=== PATIENT | male | born 1945 | race Caucasian/White ===

== ENCOUNTER 2021-03-02 11:23 | Inpatient (IN) ==
--- NOTE | 2021-03-02 12:19 | XRay Report ---
SINGLE VIEW CHEST CLINICAL HISTORY: Dyspnea. Hypoxia. FINDINGS: 2 AP, portable, upright chest radiographs are compared to study dated 09/15/2019. The examin ation is degraded by portable technique and patient rotation. The heart is enlarged. Patchy airspace consolidation is seen at both lung bases. No large pleural effusion or pneumothorax is identified. Th e skeletal structures are osteopenic. The bony thorax is grossly intact. IMPRESSION: Patchy airspace consolidation is seen at both lung bases. Correlate clinically for eviden ce of pneumonia. Radiographic follow-up to resolution is recommended. ACT 112: Negative or not required by law. Electronically signed by: Brayan Hernandez M.D. 03/02/2021 12:18 PM
--- NOTE | 2021-03-02 12:25 | Emergency Department Note ---
Impression & Plan Hypoxia, GRANDE (dyspnea on exertion), Hypernatremia, COPD (chronic obstructive pulmonary disease), Cough ED Provider Note Provider: Bharat Guerrero MD DATE OF SERVICE: 03/02/2021 CHIEF COMPLAINT: Dyspnea on exertion HISTORY OF PRESENT ILLNESS: Patient is a 75-year-old gentleman past medical hi story including CKD, COPD, type 2 diabetes, dementia, and hypertension presenting here today via ambulance from the [facility] in [place]. Patient was there for a well visit and noted to be hypoxic in the 70s. Patient is not on home oxygen. Patient denies any pain, nausea, vomiting, or abdominal pain. Patient does report that he has a bit of a chronic cough with some slight phlegm production. Denies fever or chills. Reports bit of nose congestion. Patient states he is vaccinated for flu and 2 shots of Covid. Patient states is not too short of breath at rest but when he walks he gets more short of breath. Patient states he did drop his pillbox recently and the pills got mixed up and he is unsure if he has been taking the right things. REVIEW OF SYSTEMS: A total of 10 review of systems was obtained and negative except as stated above in the HPI. PAST MEDICAL HISTORY: As noted above MEDICATIONS: Patient denies sick contact to his knowledge. SOCIAL HISTORY: Lives at home with , former smoker PHYSICAL EXAM: GENERAL: alert and oriented in no acute distress on stretcher Head: normocephalic and atraumatic EYES: No injection, discharge or icterus. NECK: Trachea midline. Supple. ENT: Mucous membranes pink and moist. LUNGS: Airway patent. No retractions. Breath sounds with some transmitted upper airway sounds and diminished bases. HEART: Regular rate and rhythm. No chest wall tenderness ABDOMEN: Soft and non-tender, without guarding or rebound. SKIN: Acyanotic, warm, dry, without rashes EXTREMITIES: Patient with 2+ bilateral lower extremity swelling. No significant leg tenderness. NEUROLOGICAL: No focal deficits. No aphasia. No facial droop or slurred speech. EK bpm normal sinus rhythm. No PVC or PAC. No acute ST segment elevation or depression. QTC 407. Some baseline artifact. CONTINUOUS CARDIAC MONITORING: was ordered and showed a heart rate of 70s to 80s bpm in normal sinus rhythm Patient's laboratory studies and imaging reviewed. Differential includes Reactive airway disease, pneumonia, pneumothorax, COPD, CHF, infections, cardiac ischemia, pulmonary embolism, musculoskeletal, gastrointestinal, as well as other pathologies. IMPRESSION/MEDICAL DECISION MAKING: Patient presents with new oxygen requirement. Here SpO2 in the mid 80s on room air. History of COPD. Some leg swelling noted. Question if medications have been mixed up. Is vaccinated for Covid and Covid test is negative here today. Chest x-ray per reviewing radiology report question some bibasilar opacities. No significant leukocytosis and minimal anemia. Some hyponatremia borderline is noted with chronic CKD. No lactate elevation. Procalcitonin not significantly elevated. No transaminitis noted. Patient does desaturate again with ambul ation of the bathroom here. Not horribly wheezy but given a DuoNeb to see if this may help. Will cover with antibiotics at this time given the x-ray findings and reported phlegmy cough and the hypoxia. Ceftriaxone and doxycycline given. Given an additional dose small amount of Lasix as he does h ave some leg swelling although proBNP is not severely elevated. Updated the patient and his daughter at bedside. Discussed further care here at the hospital. Lower suspicion at this time the patient suffering from acute PE. Hospitalist was alerted. DIAGNOSIS: Hypoxia, cough, pneumonia, COPD, leg swelling DISPOSITION: Hospitalist will evaluate Patient was agreeable with this plan. Past Med/Surg History Medical History (Updated 03/02/21 @ 14:27 by Vira Coffey PA-C) Lewy body dementia Social History Smoking Status: Never smoker Preferred Language: Chinese Feels Safe at Home: Yes Allergies Allergies Allergy/AdvReac Type Severity Reaction Status Date / Time No Known Allergies Allergy Unverified 03/02/21 13:15 Home Meds Home Medications Medication Instructions Recorded Confirmed albuterol sulfate 90 mcg/actuation 90 mcg INHALATION DIRECTED 09/15/19 03/02/21 aerosol inhaler allopurinol 100 mg tablet 100 mg PO QAM 09/15/19 03/02/21 aspirin 81 mg tablet,delayed 81 mg PO QAM 09/15/19 03/02/21 release (Aspirin Low Dose) atorvastatin 40 mg tablet 40 mg PO HS 09/15/19 03/02/21 blood sugar diagnostic (OneTouch 09/15/19 03/02/21 Ultra Blue Test Strip) carvedilol 25 mg tablet 25 mg PO BID 09/15/19 03/02/21 enalapril maleate 20 mg tablet 20 mg PO QAM 09/15/19 03/02/21 finasteride 5 mg tablet 5 mg PO QAM 09/15/19 03/02/21 levothyroxine 100 mcg tablet 100 mcg PO DAILYBB 09/15/19 03/02/21 omeprazole 20 mg capsule,delayed 20 mg PO QAM 09/15/19 03/02/21 release salmeterol 50 mcg/dose blister 50 mcg INHALATION BID 09/15/19 03/02/21 powder for inhalation (Serevent Diskus) tamsulosin 0.4 mg capsule 0.4 mg PO QAM 09/15/19 03/02/21 amlodipine 10 mg tablet 10 mg PO QAM 03/02/21 03/02/21 donepezil 10 mg tablet 10 mg PO QAM 03/02/21 03/02/21 furosemide 20 mg tablet 20 mg PO QAM 03/02/21 03/02/21 sertraline 100 mg tablet 100 mg PO HS 03/02/21 03/02/21 Results & Data (ED) Vital Signs Vital Signs - 24 hr 03/02/21 11:40 03/02/21 13:17 Temperature 36.7 C Temperature Source Oral Pulse Rate 70 Pulse Rate [Apical] 74 Pulse Rhythm Regular Pulse Strength Normal Respiratory Rate 22 22 Respiratory Effort / Characteristics Non-Labored Spontaneous Non-Labored Respiratory Depth Normal Normal Respiratory Pattern Regular Blood Pressure 176/81 H Blood Pressure [Left Arm] 152/101 H Blood Pressure Mean 112 Blood Pressure Mean [Left Arm] 118 Pulse Oximetry 95 96 Oxygen Delivery Method Nasal Cannula Nasal Cannula Oxygen Flow Rate 2 3 Sepsis Recent Fever Within 48 Hours No Sepsis New/Unexplained Change in Mental Status No Sepsis Action Taken by Nursing No Action Required Laboratory Data Result diagrams: 03/02/21 11:41 03/02/21 11:41 Lab Results 03/02/21 03/02/21 03/02/21 Range/Units 11:41 11:41 11:41 WBC 9.41 (4.8-10.8) K/uL RBC 3.70 L (4.7-6.1) M/uL Hgb 10.8 L (14.0-18.0) g/dL Hct 37.6 L (42-52) % MCV 101.6 H (80-100) fL MCH 29.2 (25-34) pg MCHC 28.7 L (32-36) g/dL RDW Std Deviation 57.2 H (36.4-46.3) fL RDW Coeff of Dipesh 15.4 H (11.5-14.5) % Plt Count 147 (130-400) K/uL MPV 11.3 H (7.4-10.4) fL Immature Gran % (Auto) 0.2 % Neut % (Auto) 79.5 % Lymph % (Auto) 9.2 % [place] % (Auto) 9.2 % Eos % (Auto) 1.7 % Baso % (Auto) 0.2 % Neut # (Auto) 7.47 H (1.4-6.5) K/uL Lymph # (Auto) 0.87 L (1.2-3.4) K/uL [place] # (Auto) 0.87 H (0.11-0.59) K/uL Eos # (Auto) 0.16 (0-0.5) K/uL Baso # (Auto) 0.02 (0-0.2) K/uL Immature Gran # (Auto) 0.02 (0.00-0.02) K/uL PT (9.0-12.0) Seconds INR (0.9-1.1) VBG pH (7.36-7.41) VBG pCO2 (38-50) mmHg VBG pO2 mmHg VBG HCO3 mmol/L VBG O2 Saturation % VBG Base Excess mEq/L Barometric Pressure mm/Hg Sodium 146 H (136-145) mmol/L Potassium 4.4 (3.5-5.1) mmol/L Chloride 114 H (98-107) mmol/L Carbon Dioxide 31 (21-32) mmol/L Anion Gap 1.0 L (3-11) BUN 28 H (7-18) mg/dl Creatinine 1.67 H (0.6-1.4) mg/dl Est Cr Clr Drug Dosing 44.9 ml/min Est GFR ( Amer) 45.1 ml/min Est GFR (Non-Af Amer) 38.9 ml/min BUN/Creatinine Ratio 16.5 (10-20) Glucose 111 H (70-99) mg/dl Lactate (0.4-2.0) mmol/L Calcium 9.1 (8.5-10.1) mg/dl Total Bilirubin 0.3 (0.2-1) mg/dl AST 15 (15-37) U/L ALT 49 (12-78) Alkaline Phosphatase 76 (45-117) U/L Troponin I < 0.015 (0-0.045) ng/ml NT-Pro-B Natriuret Pep 597 (0-1800) pg/ml Total Protein 7.0 (6.4-8.2) gm/dl Albumin 3.5 (3.4-5.0) gm/dl Globulin 3.5 (2.5-4.0) gm/dl Albumin/Globulin Ratio 1.0 (0.9-2) Procalcitonin < 0.05 (0-0.5) ng/ml SARS-CoV-2, RNA, NAAT (NEGATIVE) 03/02/21 03/02/21 03/02/21 Range/Units 11:41 12:04 12:33 WBC (4.8-10.8) K/uL RBC (4.7-6.1) M/uL Hgb (14.0-18.0) g/dL Hct (42-52) % MCV (80-100) fL MCH (25-34) pg MCHC (32-36) g/dL RDW Std Deviation (36.4-46.3) fL RDW Coeff of Dipesh (11.5-14.5) % Plt Count (130-400) K/uL MPV (7.4-10.4) fL Immature Gran % (Auto) % Neut % (Auto) % Lymph % (Auto) % [place] % (Auto) % Eos % (Auto) % Baso % (Auto) % Neut # (Auto) (1.4-6.5) K/uL Lymph # (Auto) (1.2-3.4) K/uL [place] # (Auto) (0.11-0.59) K/uL Eos # (Auto) (0-0.5) K/uL Baso # (Auto) (0-0.2) K/uL Immature Gran # (Auto) (0.00-0.02) K/uL PT 10.3 (9.0-12.0) Seconds INR 1.0 (0.9-1.1) VBG pH (7.36-7.41) VBG pCO2 (38-50) mmHg VBG pO2 mmHg VBG HCO3 mmol/L VBG O2 Saturation % VBG Base Excess mEq/L Barometric Pressure mm/Hg Sodium (136-145) mmol/L Potassium (3.5-5.1) mmol/L Chloride (98-107) mmol/L Carbon Dioxide (21-32) mmol/L Anion Gap (3-11) BUN (7-18) mg/dl Creatinine (0.6-1.4) mg/dl Est Cr Clr Drug Dosing ml/min Est GFR ( Amer) ml/min Est GFR (Non-Af Amer) ml/min BUN/Creatinine Ratio (10-20) Glucose (70-99) mg/dl Lactate 1.7 (0.4-2.0) mmol/L Calcium (8.5-10.1) mg/dl Total Bilirubin (0.2-1) mg/dl AST (15-37) U/L ALT (12-78) Alkaline Phosphatase (45-117) U/L Troponin I (0-0.045) ng/ml NT-Pro-B Natriuret Pep (0-1800) pg/ml Total Protein (6.4-8.2) gm/dl Albumin (3.4-5.0) gm/dl Globulin (2.5-4.0) gm/dl Albumin/Globulin Ratio (0.9-2) Procalcitonin (0-0.5) ng/ml SARS-CoV-2, RNA, NAAT NEGATIVE (NEGATIVE) 03/02/21 Range/Units 13:50 WBC (4.8-10.8) K/uL RBC (4.7-6.1) M/uL Hgb (14.0-18.0) g/dL Hct (42-52) % MCV (80-100) fL MCH (25-34) pg MCHC (32-36) g/dL RDW Std Deviation (36.4-46.3) fL RDW Coeff of Dipesh (11.5-14.5) % Plt Count (130-400) K/uL MPV (7.4-10.4) fL Immature Gran % (Auto) % Neut % (Auto) % Lymph % (Auto) % [place] % (Auto) % Eos % (Auto) % Baso % (Auto) % Neut # (Auto) (1.4-6.5) K/uL Lymph # (Auto) (1.2-3.4) K/uL [place] # (Auto) (0.11-0.59) K/uL Eos # (Auto) (0-0.5) K/uL Baso # (Auto) (0-0.2) K/uL Immature Gran # (Auto) (0.00-0.02) K/uL PT (9.0-12.0) Seconds INR (0.9-1.1) VBG pH 7.31 L (7.36-7.41) VBG pCO2 63 H (38-50) mmHg VBG pO2 28 mmHg VBG HCO3 31 mmol/L VBG O2 Saturation < 60.0 % VBG Base Excess 3.7 mEq/L Barometric Pressure 728.1 mm/Hg Sodium (136-145) mmol/L Potassium (3.5-5.1) mmol/L Chloride (98-107) mmol/L Carbon Dioxide (21-32) mmol/L Anion Gap (3-11) BUN (7-18) mg/dl Creatinine (0.6-1.4) mg/dl Est Cr Clr Drug Dosing ml/min Est GFR ( Amer) ml/min Est GFR (Non-Af Amer) ml/min BUN/Creatinine Ratio (10-20) Glucose (70-99) mg/dl Lactate (0.4-2.0) mmol/L Calcium (8.5-10.1) mg/dl Total Bilirubin (0.2-1) mg/dl AST (15-37) U/L ALT (12-78) Alkaline Phosphatase (45-117) U/L Troponin I (0-0.045) ng/ml NT-Pro-B Natriuret Pep (0-1800) pg/ml Total Protein (6.4-8.2) gm/dl Albumin (3.4-5.0) gm/dl Globulin (2.5-4.0) gm/dl Albumin/Globulin Ratio (0.9-2) Procalcitonin (0-0.5) ng/ml SARS-CoV-2, RNA, NAAT (NEGATIVE) Administered Medications Discontinued Medications Albuterol (Albut/Ipratrop 3mg/0.5mg Neb 3 Ml Vial) 3 ml NEB NOW STA; Protocol Stop: 03/02/21 13:09 Last Admin: 03/02/21 13:25 Dose: 3 ml Documented by: [id number] Doxycycline Hyclate (Doxycycline Hyclate 100 Mg Cap) 100 mg PO NOW STA Stop: 03/02/21 13:11 Last Admin: 03/02/21 13:25 Dose: 100 mg Documented by: [id number] Furosemide (Furosemide 40 Mg/4 Ml Vial) 40 mg IV ONE ONE Stop: 03/02/21 13:09 Last Admin: 03/02/21 13:25 Dose: 40 mg Documented by: [id number] Ceftriaxone Sodium (Rocephin) 2,000 mg in 70 mls @ 140 mls/hr IV NOW STA Stop: 03/02/21 13:38 Last Infusion: 03/02/21 13:55 Dose: 0 mls/hr Documented by: [id number] Admin: 03/02/21 13:25 Dose: 140 mls/hr Documented by: [id number] Imaging Data Radiologist's Impression: Chest X-Ray 03/02/21 11:56 SINGLE VIEW CHEST CLINICAL HISTORY: Dyspnea. Hypoxia. FINDINGS: 2 AP, portable, upright chest radiographs are compared to study dated 09/15/2019. The examination is degraded by portable technique and patient rotation. The heart is enlarged. Patchy airspace consolidation is seen at both lung bases. No large pleural effusion or pneumothorax is identified. The skeletal structures are osteopenic. The bony thorax is grossly intact. IMPRESSION: Patchy airspace consolidation is seen at both lung bases. Correlate clinically for evidence of pneumonia. Radiographic follow-up to resolution is recommended. ACT 112: Negative or not required by law. Electronically signed by: Brayan Hernandez M.D. 03/02/2021 12:18 PM Discharge Plan Visit Data Chief Complaint: Shortness of Breath/Dyspnea Stated Complaint: SOB ED Provider: Bharat Guerrero Discharge Problem: Hypoxia, GRANDE (dyspnea on exertion), Hypernatremia, COPD (chronic obstructive pulmonary disease), Cough Patient Disposition: Being Evaluated by Hospitalist Forms Stand Alone Forms: Curiously Prescriptions Prescriptions: No Action atorvastatin 40 mg tablet 40 mg PO HS RF: 0 carvedilol 25 mg tablet 25 mg PO BID RF: 0 enalapril maleate 20 mg tablet 20 mg PO QAM RF: 0 allopurinol 100 mg tablet 100 mg PO QAM RF: 0 levothyroxine 100 mcg tablet 100 mcg PO DAILYBB RF: 0 tamsulosin 0.4 mg capsule 0.4 mg PO QAM RF: 0 Serevent Diskus 50 mcg/dose blister with device 50 mcg INHALATION BID RF: 0 omeprazole 20 mg capsule,delayed release(DR/EC) 20 mg PO QAM RF: 0 albuterol sulfate 90 mcg/actuation HFA aerosol inhaler 90 mcg INHALATION DIRECTED RF: 0 finasteride 5 mg tablet 5 mg PO QAM RF: 0 (DME) OneTouch Ultra Blue Test Strip Strip MISCELLANEOUS RF: 0 aspirin [Aspirin Low Dose] 81 mg Tablet,Delayed Release (Dr/Ec) 81 mg PO QAM RF: 0 donepezil 10 mg tablet 10 mg PO QAM RF: 0 sertraline 100 mg tablet 100 mg PO HS RF: 0 amlodipine 10 mg tablet 10 mg PO QAM RF: 0 furosemide 20 mg tablet 20 mg PO QAM RF: 0 Referrals Referrals: Carina Merrill DO [Primary Care Provider] -
[2021-03-02 12:32] LABS: Prothrombin Time 10.3 Seconds (9.0-12.0)
[2021-03-02 12:40] LABS: Alanine Aminotransferase 49 (12-78); Albumin Level 3.5 gm/dl (3.4-5.0); Aspartate Aminotransferase 15 U/L (15-37); BUN Creatinine Ratio 16.5 (10-20); Blood Urea Nitrogen 28 mg/dl (7-18); Calcium 9.1 mg/dl (8.5-10.1); Carbon Dioxide 31 mmol/L (21-32); Chloride 114 mmol/L (98-107); Creatinine Clr Calc Pharmacy 44.9 ml/min; Est GFR (African American) 45.1 ml/min; Est GFR (Non-African American) 38.9 ml/min; Glucose 111 mg/dl (70-99); Potassium 4.4 mmol/L (3.5-5.1); Sodium 146 mmol/L (136-145)
[2021-03-02 12:44] LABS: Hematocrit (blood only) 37.6 % (42-52); Hemoglobin 10.8 g/dL (14.0-18.0); Mean Corpuscular Hemoglobin 29.2 pg (25-34); Mean Corpuscular Hgb Conc 28.7 g/dL (32-36); Mean Corpuscular Volume 101.6 fL (80-100); Mean Platelet Volume 11.3 fL (7.4-10.4); Platelet Count 147 K/uL (130-400); RDW Coefficient of Variation 15.4 % (11.5-14.5); RDW Standard Deviation 57.2 fL (36.4-46.3); White Blood Count 9.41 K/uL (4.8-10.8)
[2021-03-02 12:45] LABS: Alkaline Phosphatase 76 U/L (45-117); Bilirubin,Total 0.3 mg/dl (0.2-1); Globulin 3.5 gm/dl (2.5-4.0); NT Pro B Type Natriuretic Pept 597 pg/ml (0-1800); Troponin I < 0.015 ng/ml (0-0.045)
[2021-03-02] MEDS ORDERED: ALBUT/IPRATROP 3MG/0.5MG NEB 3 ML VIAL NEB STA (13:08)
[2021-03-02] MEDS ORDERED: FUROSEMIDE 40 MG/4 ML VIAL IV ONE (13:08)
[2021-03-02] MEDS ORDERED: cefTRIAXone SODIUM 2,000 MG/70 ML BAG IV STA (13:09)
[2021-03-02] MEDS ORDERED: DOXYCYCLINE HYCLATE 100 MG CAP PO STA (13:10)
[2021-03-02 13:18] LABS: Basophils # (auto) 0.02 K/uL (0-0.2); Basophils % (auto) 0.2 %; Eosinophils # (auto) 0.16 K/uL (0-0.5); Eosinophils % (auto) 1.7 %; Immature Granulocytes # (auto) 0.02 K/uL (0.00-0.02); Immature Granulocytes % (auto) 0.2 %; Lymphocytes # (auto) 0.87 K/uL (1.2-3.4); Lymphocytes % (auto) 9.2 %; Monocytes # (auto) 0.87 K/uL (0.11-0.59); Monocytes % (auto) 9.2 %; Neutrophils # (auto) 7.47 K/uL (1.4-6.5); Neutrophils % (auto) 79.5 %
--- NOTE | 2021-03-02 13:35 | History & Physical Report ---
Date of Service March 02, 2021 Assessment & Plan (1) Acute respiratory failure with hypoxia: (2) Pneumonia: Plan: - Admit to med surg with tele - Will treat for early pneumonia as seen on CXR by continuing ceftriaxone and doxycycline - Cont pulmonary toilet with albuterol nebs, Mucinex, flutter, incentive spirometry -Patient does not require O2 at baseline, currently on 3 L with O2 sats in the mid 90s, was noted to be hypoxic with sats in the mid 70s with ambulation and PCP office this morning, improved into the mid 80s after sitting and taking few deep breaths. -Negative Covid swab on admission -Check MRSA swab - Encourage ambulation and deep breathing (3) COPD (chronic obstructive pulmonary disease): Plan: -History of such, smoking history of 40 pack years -Continue Severent disc daily, albuterol as above (4) DM II (diabetes mellitus, type II), controlled: Plan: - Patient is not on home medications - A1c = 6.6 on 09/08/20 - HH/DM Diet -encourage diet and exercise (5) HLD (hyperlipidemia): Plan: -Continue atorvastatin 40 mg daily (6) Hypernatremia: Plan: -Noted on admission at 146, continue Lasix daily, monitor with a.m. BMP (7) Lewy body dementia: Plan: -History of such, follows with neurology as an outpatient -PT and OT -Daughter reports 6 recent falls within the past 6 months, patient has cane/w alker to use for ambulation assistance at home, PT/OT had previously been coming to his home twice per week, finished this week and would like to continue if possible after hospital stay. (8) CKD (chronic kidney disease), stage III: Plan: -Chronic, baseline appears to be around 1.4-1.5, 1.67 on admission -Continue medications [employer] SAL[employer] MA[employer]GER (9) Obesity (BMI 30-39.9): Plan: - BMI 39.8, diet and exercise to be encouraged throughout stay (10) BPH (benign prostatic hyperplasia): Plan: - Cont finasteride and tamsulosin DVT ppx: - teds, heparin subcu CODE: Full code Dispo: From home, likely to remain in the hospital x 1-2 days History of Present Illness Primary Care Provider: Carina Merrill, DO This is a 75 yo M with PMHx of cOPD, asthma, Patient presented to his PCP office this morning for an annual wellness visit. When he came in his O2 sats were registering in the upper 70s, best O2 sats in the office were mid 80s. He typically does not require any oxygen at home, and was placed on 4L via NC in the office and sent here. His Covid swab is negative today. Pt notes about 1 week of worsening fatigue, nasal congestion, shortness of breath on exertion, cough with clear to green mucus production, and 3 days of diarrhea. He denies any recent fevers, sweats or chills. He has been taking all his routinely scheduled medications including his diuretic. He denies any loss of appetite or smell, and has been tolerating p.o. intake without any difficulty. He has some bilateral edema in his ankles and feet however this is chronic and unchanged. Patient previously smoked for approximately 40 years, quit 15 years ago. Denies any alcohol use or illicit drug history. His daughter is present with him at bedside and supports the history. CXR reviewed shows beginning phases of pneumonia in bases bilaterally. He was started on IV ceftriaxone and doxycycline, given an albuterol nebulizer treatment in the ER as well as 40 mg IV Lasix. Allergies Allergy/AdvReac Type Severity Reaction Status Date / Time No Known Allergies Allergy Unverified 03/02/21 13:15 Home Medications Medication Instructions Recorded Confirmed Type albuterol sulfate 90 mcg/actuation 90 mcg INHALATION DIRECTED 09/15/19 03/02/21 History aerosol inhaler allopurinol 100 mg tablet 100 mg PO QAM 09/15/19 03/02/21 History aspirin 81 mg tablet,delayed 81 mg PO QAM 09/15/19 03/02/21 History release (Aspirin Low Dose) atorvastatin 40 mg tablet 40 mg PO HS 09/15/19 03/02/21 History blood sugar diagnostic (OneTouch 09/15/19 09/15/19 History Ultra Blue Test Strip) carvedilol 25 mg tablet 25 mg PO BID 09/15/19 03/02/21 History enalapril maleate 20 mg tablet 20 mg PO QAM 09/15/19 03/02/21 History finasteride 5 mg tablet 5 mg PO QAM 09/15/19 03/02/21 History levothyroxine 100 mcg tablet 100 mcg PO DAILYBB 09/15/19 03/02/21 History omeprazole 20 mg capsule,delayed 20 mg PO QAM 09/15/19 03/02/21 History release salmeterol 50 mcg/dose blister 50 mcg INHALATION BID 09/15/19 03/02/21 History powder for inhalation (Serevent Diskus) tamsulosin 0.4 mg capsule 0.4 mg PO QAM 09/15/19 03/02/21 History amlodipine 10 mg tablet 10 mg PO QAM 03/02/21 03/02/21 History donepezil 10 mg tablet 10 mg PO QAM 03/02/21 03/02/21 History furosemide 20 mg tablet 20 mg PO QAM 03/02/21 03/02/21 History sertraline 100 mg tablet 100 mg PO HS 03/02/21 03/02/21 History Past Med/Surg History Medical History (Updated 03/02/21 @ 14:27 by Vira Coffey PA-C) Lewy body dementia Social History Smoking Status: Never smoker Preferred Language: Latvian Feels Safe at Home: Yes Review of Systems Review of Systems: Constitutional: No fever, sweats or chills Eyes: No diplopia, no worsening or blurred vision ENT: normal hearing, no trouble swallowing Respiratory: + as per HPI, + cough, +sputum, no dyspnea at rest , but admits to dyspnea on exertion Cardiovascular: No chest pain, tightness or palpitations Abdomen: No pain, nausea, vomiting, diarrhea or constipation Musculoskeletal: No joint pain, calf pain, + bilateral lower extremity swelling Neurologic: No weakness, numbness/tingling, or balance problems, + memory issues, hx Lewy body dementia Psychiatric: No anxiety or depression Skin: No rash or itch Physical Exam Physical Exam: General: awake, alert, no apparent distress, + obese with BMI of 39.8 Head: Normocephalic, atraumatic ENT: PERRL, EOMI, no pharyngeal exudate, mucous membranes moist Chest: On 3 L via NC, Diminished breath sounds at bases bilaterally, no adventitious breath sounds Cardiac: Regular rate and rhythm, no murmur, no JVD, normal peripheral pulses, good capillary refill Abdominal: NABS x 4 quadrants, soft, nondistended, nontender to palpation, no rebound or guarding Extremities: Normal inspection, 1+ peripheral edema bilaterally, no erythema, calfs nontender to palpation Psych: Normal mood and affect Neuro: AAO x 3, strength intact bilaterally and rated 5/5, no motor deficits, speech is clear, no peripheral sensory deficits Results & Data Results & Data ([facility]) Vital Signs (Past 12 Hours) Vital Signs Temp Pulse Pulse Resp BP BP Pulse Ox 03/02/21 13:17 74 22 152/101 H 96 03/02/21 11:40 36.7 C 70 22 176/81 H 95 Laboratory Results 03/02/21 13:50 Aerobic Blood Culture - Pending Blood Anaerobic Blood Culture - Pending 03/02/21 12:05 Aerobic Blood Culture - Pending Blood Anaerobic Blood Culture - Pending 03/02/21 03/02/21 03/02/21 13:50 12:33 12:04 WBC RBC Hgb Hct MCV MCH MCHC RDW Std Deviation RDW Coeff of Dipesh Plt Count MPV Immature Gran % (Auto) Neut % (Auto) Lymph % (Auto) [place] % (Auto) Eos % (Auto) Baso % (Auto) Neut # (Auto) Lymph # (Auto) [place] # (Auto) Eos # (Auto) Baso # (Auto) Immature Gran # (Auto) PT INR VBG pH 7.31 L VBG pCO2 63 H VBG pO2 28 VBG HCO3 31 VBG O2 Saturation < 60.0 VBG Base Excess 3.7 Barometric Pressure 728.1 Sodium Potassium Chloride Carbon Dioxide Anion Gap BUN Creatinine Est Cr Clr Drug Dosing Est GFR ( Amer) Est GFR (Non-Af Amer) BUN/Creatinine Ratio Glucose Lactate 1.7 Calcium Total Bilirubin AST ALT Alkaline Phosphatase Troponin I NT-Pro-B Natriuret Pep Total Protein Albumin Globulin Albumin/Globulin Ratio Procalcitonin SARS-CoV-2, RNA, NAAT NEGATIVE 03/02/21 03/02/21 03/02/21 11:41 11:41 11:41 WBC 9.41 RBC 3.70 L Hgb 10.8 L Hct 37.6 L MCV 101.6 H MCH 29.2 MCHC 28.7 L RDW Std Deviation 57.2 H RDW Coeff of Dipesh 15.4 H Plt Count 147 MPV 11.3 H Immature Gran % (Auto) 0.2 Neut % (Auto) 79.5 Lymph % (Auto) 9.2 [place] % (Auto) 9.2 Eos % (Auto) 1.7 Baso % (Auto) 0.2 Neut # (Auto) 7.47 H Lymph # (Auto) 0.87 L [place] # (Auto) 0.87 H Eos # (Auto) 0.16 Baso # (Auto) 0.02 Immature Gran # (Auto) 0.02 PT 10.3 INR 1.0 VBG pH VBG pCO2 VBG pO2 VBG HCO3 VBG O2 Saturation VBG Base Excess Barometric Pressure Sodium Potassium Chloride Carbon Dioxide Anion Gap BUN Creatinine Est Cr Clr Drug Dosing Est GFR ( Amer) Est GFR (Non-Af Amer) BUN/Creatinine Ratio Glucose Lactate Calcium Total Bilirubin AST ALT Alkaline Phosphatase Troponin I NT-Pro-B Natriuret Pep Total Protein Albumin Globulin Albumin/Globulin Ratio Procalcitonin < 0.05 SARS-CoV-2, RNA, NAAT 03/02/21 11:41 WBC RBC Hgb Hct MCV MCH MCHC RDW Std Deviation RDW Coeff of Dipesh Plt Count MPV Immature Gran % (Auto) Neut % (Auto) Lymph % (Auto) [place] % (Auto) Eos % (Auto) Baso % (Auto) Neut # (Auto) Lymph # (Auto) [place] # (Auto) Eos # (Auto) Baso # (Auto) Immature Gran # (Auto) PT INR VBG pH VBG pCO2 VBG pO2 VBG HCO3 VBG O2 Saturation VBG Base Excess Barometric Pressure Sodium 146 H Potassium 4.4 Chloride 114 H Carbon Dioxide 31 Anion Gap 1.0 L BUN 28 H Creatinine 1.67 H Est Cr Clr Drug Dosing 44.9 Est GFR ( Amer) 45.1 Est GFR (Non-Af Amer) 38.9 BUN/Creatinine Ratio 16.5 Glucose 111 H Lactate Calcium 9.1 Total Bilirubin 0.3 AST 15 ALT 49 Alkaline Phosphatase 76 Troponin I < 0.015 NT-Pro-B Natriuret Pep 597 Total Protein 7.0 Albumin 3.5 Globulin 3.5 Albumin/Globulin Ratio 1.0 Procalcitonin SARS-CoV-2, RNA, NAAT Diagnostic Findings Chest X-Ray 03/02/21 11:56 SINGLE VIEW CHEST CLINICAL HISTORY: Dyspnea. Hypoxia. FINDINGS: 2 AP, portable, upright chest radiographs are compared to study dated 09/15/2019. The examination is degraded by portable technique and patient rotation. The heart is enlarged. Patchy airspace consolidation is seen at both lung bases. No large pleural effusion or pneumothorax is identified. The skeletal structures are osteopenic. The bony thorax is grossly intact. IMPRESSION: Patchy airspace consolidation is seen at both lung bases. Correlate clinically for evidence of pneumonia. Radiographic follow-up to resolution is recommended. ACT 112: Negative or not required by law. Electronically signed by: Brayan Hernandez M.D. 03/02/2021 12:18 PM ECG Additional Comments: 02-MAR-2021 11:34:54 [facility]-EDSTAT ROUTINE RETRIEVAL Normal sinus rhythm Low voltage QRS Inferior infarct (cited on or before 15-SEP-2019) Cannot rule out Anterior infarct , age undetermined Abnormal ECG When compared with ECG of 15-SEP-2019 14:18, No significant change was found 25mm/s 10mm/mV 150Hz 9.0.9 12SL 241 JUJU: 3 Unconfirmed Vent. rate 73 BPM MT interval 148 ms QRS duration 76 ms QT/QTc 370/407 ms Code Status & VTE Plan Code Status Full code -discussed with the patient and his daughter at bedside Supervising Physician Co-Signing Physician Notes Attending addendum: The patient was seen and examined in emergency room in presence of the daughter He has been complaining of runny nose, cough with productive of yellowish phlegm for the last few days Associated shortness of breath with exertion Denies any fever and no chills, no chest pain or palpitation, no abdominal pain nausea no vomiting On examination Minimal shortness of breath at rest with cough Blood pressure noted to be high at 152/101 otherwise afebrile Chestdecreased breath sounds both sides, occasional wheezing and bibasilar crackles HeartS1, S2 regular, no murmur appreciated Abdomenbenign Extremities1+ edema bilaterally CNSalert, awake and oriented x3 His admission labs, EKG and imaging studies reviewed Has COPD with a history of smoking in the past with bibasilar pneumonia Has been started with intravenous ceftriaxone and doxycycline Cultures will be taken No evidence of CHF Agree with assessment and plan as outlined above by BRAN Camara DR
[2021-03-02 14:04] LABS: Base Excess VBG 3.7 mEq/L; HCO3 VBG 31 mmol/L; Oxygen Saturation VBG < 60.0 %; PCO2 VBG 63 mmHg (38-50); PO2 VBG 28 mmHg; pH VBG 7.31 (7.36-7.41)
[2021-03-02 15:46] LABS: Appearance Urine Clear (Clear); Bilirubin Urine Negative (Negative); Blood Urine Negative (Negative); Color Urine Yellow; Glucose Urine UA Negative (Negative); Ketones Urine Negative (Negative); Leukocyte Esterase Urine Negative (Negative); Nitrite Urine Negative (Negative); Protein Urine Negative (Negative); Specific Gravity Urine 1.007 (1.000-1.030); Urobilinogen Urine Negative (Negative)
--- NOTE | 2021-03-02 16:42 | Electrocardiogram Report ---
Test Reason : Blood Pressure : / mmHG Vent. Rate : 073 BPM Atrial Rate : 073 BPM P-R Int : 148 ms QRS Dur : 076 ms QT Int : 370 ms P-R-T Axes : 027 -18 020 degrees QTc Int : 407 ms Normal sinus rhythm Low voltage QRS possible Inferior infarct (cited on or before 15-SEP-2019) Abnormal ECG When compared with ECG of 15-SEP-2019 14:18, No significant change was found Confirmed by Clinton Ramesh ([id number]) on 03/02/2021 4:42:04 PM Referred By: Confirmed By:Bj Ramesh
[2021-03-02] MEDS ORDERED: cefTRIAXone SODIUM 1,000 MG in DEXTROSE 5% 50 ML IV SCH (16:51)
[2021-03-02] MEDS ORDERED: ACETAMINOPHEN 325 MG TAB PO PRN (16:51)
[2021-03-02] MEDS ORDERED: ONDANSETRON INJ 2 MG/ML 2 ML VIAL IV PRN (16:51)
[2021-03-02] MEDS: ALBUT/IPRATROP 3MG/0.5MG NEB 3 ML VIAL NEB SCH ×3 (17:00→23:00)
[2021-03-02] MEDS ORDERED: SALMETEROL XINAFOATE 50MCG 28 BLISTER INH INH SCH (21:00)
[2021-03-02] MEDS: carvediloL 25 MG TAB PO SCH (21:21)
[2021-03-02] MEDS: DOXYCYCLINE HYCLATE 100 MG CAP PO SCH (21:21)
[2021-03-02] MEDS: guaiFENesin 600 MG TABCR PO SCH (21:22)
[2021-03-02] MEDS: ATORVASTATIN 40 MG TAB PO SCH (21:22)
[2021-03-02] MEDS: HEPARIN SOD 5,000 UNIT/0.5 ML VIAL SQ SCH (21:26)
[2021-03-02] MEDS: SERTRALINE HCL 100 MG TABLET PO SCH (21:33)
[2021-03-03] MEDS: ALBUT/IPRATROP 3MG/0.5MG NEB 3 ML VIAL NEB SCH ×2 (03:12→07:24)
[2021-03-03 05:33] LABS: Hematocrit (blood only) 38.5 % (42-52); Hemoglobin 11.3 g/dL (14.0-18.0); Mean Corpuscular Hemoglobin 29.1 pg (25-34); Mean Corpuscular Hgb Conc 29.4 g/dL (32-36); Mean Corpuscular Volume 99.2 fL (80-100); Mean Platelet Volume 11.2 fL (7.4-10.4); Platelet Count 142 K/uL (130-400); RDW Coefficient of Variation 15.2 % (11.5-14.5); RDW Standard Deviation 54.7 fL (36.4-46.3); Red Blood Count 3.88 M/uL (4.7-6.1); White Blood Count 9.44 K/uL (4.8-10.8)
[2021-03-03 05:55] LABS: Albumin Level 3.5 gm/dl (3.4-5.0); Calcium 9.1 mg/dl (8.5-10.1); Creatinine Clr Calc Pharmacy 47.5 ml/min; Est GFR (African American) 48.2 ml/min; Est GFR (Non-African American) 41.6 ml/min; Potassium 3.9 mmol/L (3.5-5.1)
[2021-03-03 05:58] LABS: Bilirubin,Total 0.5 mg/dl (0.2-1); Globulin 3.4 gm/dl (2.5-4.0); Total Protein 6.9 gm/dl (6.4-8.2)
[2021-03-03] MEDS: HEPARIN SOD 5,000 UNIT/0.5 ML VIAL SQ SCH ×3 (06:23→21:09)
[2021-03-03] MEDS: LEVOTHYROXINE SODIUM 100 MCG TABLET PO SCH (06:24)
[2021-03-03] MEDS: OLODATEROL HCL 2.5MCG/ACTUATION 60 PUFFS/INHALER INH SCH (08:43)
[2021-03-03] MEDS: ASPIRIN 81 MG ECTAB PO SCH (08:44)
[2021-03-03] MEDS: amLODIPine BESYLATE 5 MG TAB PO SCH (08:45)
[2021-03-03] MEDS: ENALAPRIL MALEATE 10 MG TAB PO SCH (08:45)
[2021-03-03] MEDS: TAMSULOSIN HCL 0.4 MG CAP PO SCH (08:45)
[2021-03-03] MEDS: carvediloL 25 MG TAB PO SCH ×3 (08:45→21:09)
[2021-03-03] MEDS: DONEPEZIL HCL 10 MG TAB PO SCH (08:45)
[2021-03-03] MEDS: guaiFENesin 600 MG TABCR PO SCH ×3 (08:45→21:09)
[2021-03-03] MEDS: PANTOprazole 40 MG TAB PO SCH (08:45)
[2021-03-03] MEDS: FINASTERIDE 5 MG TAB PO SCH (08:45)
[2021-03-03] MEDS: FUROSEMIDE 20 MG TAB PO SCH (08:45)
[2021-03-03] MEDS: DOXYCYCLINE HYCLATE 100 MG CAP PO SCH (08:45)
[2021-03-03] MEDS: allopurinoL 100 MG TAB PO SCH (08:45)
[2021-03-03] MEDS ORDERED: ALBUT/IPRATROP 3MG/0.5MG NEB 3 ML VIAL NEB PRN (10:03)
[2021-03-03] MEDS: cefTRIAXone SODIUM 2,000 MG in DEXTROSE 5% 50 ML IV SCH (14:56)
--- NOTE | 2021-03-03 16:45 | Hospitalist Progress Note ---
Date of Service March 03, 2021 Assessment & Plan (1) Pneumonia: Plan: Clinically picture consistent with pneumonia and on imaging this is present at bilateral bases. Patient is improved on ceftriaxone and doxycycline. To shorten the course of antibiotics and make med dosing once daily switching doxycycline to azithromycin for total 3-day dose of 500 mg daily. Otherwise continue ceftriaxone and supportive care along with pulmonary toilet efforts. Patient is not walking around much, typically walks with a cane, however encouraged to mobilize as this will help his breathing. Negative Covid swab, patient has remained afebrile. I discussed the utility of RSV and flu swabs at this point and daughter agrees to decline this testing. (2) COPD (chronic obstructive pulmonary disease): Plan: chronic, stablem no wheezing. Cont home inhalers. Of note, daughter requested a different inhaler at discharge which was switched. She is a lead pharmacist for [employer] and understands what medications will be covered by his insurance. The change was made so that he would receive a better vehicle instead of the diskus which is not user friendly. (3) DM II (diabetes mellitus, type II), controlled: Plan: diet controlled. (4) HLD (hyperlipidemia): Plan: -Continue atorvastatin 40 mg daily per home regimen. (5) Lewy body dementia: Plan: newly diagnosed 6 months ago. Frequent falls at home in the last 6 months. PT/OT assessments. (6) CKD (chronic kidney disease), stage III: Plan: -Chronic, baseline appears to be around 1.4-1.5, 1.67 on admission -Continue medications MEDICAID BILLING CLERK (7) Obesity (BMI 30-39.9): Plan: - BMI 39.8, diet and exercise to be encouraged throughout stay (8) BPH (benign prostatic hyperplasia): Plan: - Cont finasteride and tamsulosin DVT ppx: - teds, heparin subcu CODE: Full code Dispo: to home when clinically improved DO Dolores Salmeron Hospitalist Admission and Anticipated Discharge Date Admission Date: March 02, 2021 Subjective 75-year-old man with hypoxia in the clinic sent to the ER and found to have pne umonia. Covid is negative. Reports 1 week of worsening fatigue nasal congestion shortness of breath on exertion and cough with mucus production, 3 days of diarrhea. He has been admitted to the hospitalist service and placed on ceftriaxone and doxycycline. Continues on as needed albuterol nebulizers, Mucinex flutter valve and incentive spirometry. Patient does not require oxygen at baseline. Has a history of COPD. Has a history of Lewy body dementia with 6 recent falls in the past 6 months per daughter. Patient reports feeling better overall with restricted breathing, still coughing somewhat but this is improved Tolerating p.o. Denies any diarrhea today Reviewed all labs and medications with daughter who is a senior pharmacist with [employer] and who is at bedside. Review of Systems Review of Systems: All systems reviewed and negative except as indicated above Physical Exam Physical Exam: CONSTITUTIONAL: WNWD, vitals as above, generally well- appearing, NAD EYES: normal conjunctivae, no scleral icterus ENT: external ear and nose normal,MMM, NC in place. NECK: trachea midline RESPIRATORY: clear to auscultation bilaterally, no crackles, rales or wheezes, normal respiratory effort CARDIOVASCULAR: regular rate and rhythm, S1 and 2 heard without murmurs, gallops or rubs, no JVD, no peripheral edema GASTROINTESTINAL: soft, nontender, ND, no guarding MUSCULOSKELETAL: strength 5/5 throughout, head is normocephalic and atraumatic SKIN: warm and dry NEUROLOGIC: CN 2-12 grossly intact, no sensory deficit, normal cognition, normal speech, no tremor, no gross focal deficits. PSYCHIATRIC: alert cooperative and oriented to person, place and time. Results & Data Results & Data ([facility]) Vital Signs (Past 12 Hours) Vital Signs Temp Pulse Resp BP BP Pulse Ox 03/03/21 14:12 92 03/03/21 09:29 129/73 03/03/21 08:10 36.8 C 74 18 153/83 H 93 03/03/21 07:28 82 20 94 03/03/21 06:45 78 20 190/82 H 190/82 H 96 Laboratory Results Short CBC 03/03/21 Range/Units 04:58 WBC 9.44 (4.8-10.8) K/uL Hgb 11.3 L (14.0-18.0) g/dL Hct 38.5 L (42-52) % Plt Count 142 (130-400) K/uL BMP 03/03/21 04:58 Sodium 143 Potassium 3.9 Chloride 108 H Carbon Dioxide 33 H BUN 28 H Creatinine 1.58 H Glucose 111 H Calcium 9.1 Liver Function 03/03/21 Range/Units 04:58 Total Bilirubin 0.5 (0.2-1) mg/dl AST 13 L (15-37) U/L ALT 42 (12-78) Alkaline Phosphatase 78 (45-117) U/L Albumin 3.5 (3.4-5.0) gm/dl Medications Administered Current Inpatient Medications Acetaminophen (Acetaminophen 325 Mg Tab) 650 mg PO Q4H PRN PRN Reason: Moderate Pain Stop: 04/01/21 16:50 Albuterol (Albut/Ipratrop 3mg/0.5mg Neb 3 Ml Vial) 3 ml NEB Q4R PRN; Protocol PRN Reason: Shortness Of Breath Or Wheezing Stop: 04/01/21 14:59 [facility] ([facility] 100 Mg Tab) [facility] [place]: 04/02/21 08:59 Last Admin: 03/03/21 08:45 Dose: 100 mg Documented by: Amlodipine Besylate (Amlodipine Besylate 5 Mg Tab) 10 mg PO [facility] Stop: 04/02/21 08:59 Last Admin: 03/03/21 08:45 Dose: 10 mg Documented by: Aspirin (Aspirin 81 Mg Ectab) [facility] Stop: 04/02/21 08:59 Last Admin: 03/03/21 08:44 Dose: 81 mg Documented by: Atorvastatin Calcium (Atorvastatin 40 Mg Tab) 40 mg PO [facility] Stop: 04/01/21 20:59 Last Admin: 03/02/21 21:22 Dose: 40 mg Documented by: Carvedilol (Carvedilol 25 Mg Tab) 25 mg PO BID [facility] Stop: 04/01/21 20:59 Last Admin: 03/03/21 08:45 Dose: 25 mg Documented by: Donepezil HCl (Donepezil Hcl 10 Mg Tab) [facility] Stop: 04/02/21 08:59 Last Admin: 03/03/21 08:45 Dose: 10 mg Documented by: Doxycycline Hyclate (Doxycycline Hyclate 100 Mg Cap) 100 mg PO BID [facility] Stop: 03/09/21 20:59 Last Admin: 03/03/21 08:45 Dose: 100 mg Documented by: Enalapril Maleate (Enalapril Maleate 10 Mg Tab) [facility] Stop: 04/02/21 08:59 Last Admin: 03/03/21 08:45 Dose: 20 mg Documented by: Finasteride (Finasteride 5 Mg Tab) 5 mg PO QAM [facility] Stop: 04/02/21 08:59 Last Admin: 03/03/21 08:45 Dose: 5 mg Documented by: Furosemide (Furosemide 20 Mg Tab) 20 mg PO QAM [facility] Stop: 04/02/21 08:59 Last Admin: 03/03/21 08:45 Dose: 20 mg Documented by: Guaifenesin (Guaifenesin 600 Mg Tabcr) 1,200 mg PO Q12 [facility] Stop: 04/01/21 20:59 Last Admin: 03/03/21 08:45 Dose: 1,200 mg Documented by: Heparin Sodium (Porcine) (Heparin Sod 5,000 Unit/0.5 Ml Vial) 5,000 units SQ Q8 [facility] Stop: 04/01/21 21:59 Last Admin: 03/03/21 15:28 Dose: 5,000 units Documented by: Ceftriaxone Sodium 2,000 mg/ (Dextrose) 70 mls @ 140 mls/hr IV Q24H [facility] Stop: 03/10/21 12:59 Last Infusion: 03/03/21 15:28 Dose: Infused Documented by: Levothyroxine Sodium (Levothyroxine Sodium 100 Mcg Tablet) 100 mcg PO DAILYBB [facility] Stop: 04/02/21 06:29 Last Admin: 03/03/21 06:24 Dose: 100 mcg Documented by: Olodaterol (Olodaterol Hcl 2.5mcg/Actuation 60 Puffs/Inhaler) [facility] [place]: 04/02/21 08:59 Last Admin: 03/03/21 08:43 Dose: 2 puffs Documented by: Ondansetron HCl (Ondansetron Inj 2 Mg/Ml 2 Ml Vial) 4 mg IV Q4H PRN PRN Reason: Nausea And Vomiting Stop: 04/01/21 16:50 Pantoprazole Sodium (Pantoprazole 40 Mg Tab) 40 mg PO QAM [facility] Stop: 04/02/21 08:59 Last Admin: 03/03/21 08:45 Dose: 40 mg Documented by: Sertraline HCl (Sertraline Hcl 100 Mg Tablet) 100 mg PO HS [facility] Stop: 04/01/21 20:59 Last Admin: 03/02/21 21:33 Dose: 100 mg Documented by: Tamsulosin HCl (Tamsulosin Hcl 0.4 Mg Cap) 0.4 mg PO [facility] Stop: 04/02/21 08:59 Last Admin: 03/03/21 08:45 Dose: 0.4 mg Documented by:
[2021-03-03] MEDS: AZITHROMYCIN 250 MG TAB PO SCH (19:36)
[2021-03-03] MEDS: ATORVASTATIN 40 MG TAB PO SCH ×2 (20:58→21:09)
[2021-03-03] MEDS: SERTRALINE HCL 100 MG TABLET PO SCH ×2 (20:58→21:09)
[2021-03-04] MEDS: HEPARIN SOD 5,000 UNIT/0.5 ML VIAL SQ SCH ×3 (06:16→21:24)
[2021-03-04] MEDS: LEVOTHYROXINE SODIUM 100 MCG TABLET PO SCH (06:18)
[2021-03-04 07:58] LABS: Hematocrit (blood only) 40.6 % (42-52); Hemoglobin 11.8 g/dL (14.0-18.0); Mean Corpuscular Hemoglobin 29.2 pg (25-34); Mean Corpuscular Hgb Conc 29.1 g/dL (32-36); Mean Corpuscular Volume 100.5 fL (80-100); Mean Platelet Volume 10.9 fL (7.4-10.4); Platelet Count 143 K/uL (130-400); RDW Coefficient of Variation 15.1 % (11.5-14.5); RDW Standard Deviation 54.9 fL (36.4-46.3); Red Blood Count 4.04 M/uL (4.7-6.1); White Blood Count 9.92 K/uL (4.8-10.8)
[2021-03-04 08:32] LABS: Albumin Level 3.2 gm/dl (3.4-5.0); BUN Creatinine Ratio 17.9 (10-20); Calcium 8.7 mg/dl (8.5-10.1); Creatinine Clr Calc Pharmacy 46.8 ml/min; Est GFR (African American) 48.9 ml/min; Est GFR (Non-African American) 42.2 ml/min; Magnesium 1.7 mg/dl (1.8-2.4); Potassium 4.1 mmol/L (3.5-5.1)
[2021-03-04 08:35] LABS: Albumin Globulin Ratio 0.9 (0.9-2); Globulin 3.4 gm/dl (2.5-4.0); Phosphorus 4.9 mg/dl (2.5-4.9); Total Protein 6.6 gm/dl (6.4-8.2)
[2021-03-04 08:56] LABS: Bilirubin,Total 0.6 mg/dl (0.2-1)
[2021-03-04] MEDS: carvediloL 25 MG TAB PO SCH ×2 (09:57→20:46)
[2021-03-04] MEDS: FINASTERIDE 5 MG TAB PO SCH (09:57)
[2021-03-04] MEDS: FUROSEMIDE 20 MG TAB PO SCH (09:57)
[2021-03-04] MEDS: allopurinoL 100 MG TAB PO SCH (09:57)
[2021-03-04] MEDS: ADVANCED PROBIOTIC 1250 MG CAPSULE PO SCH (09:57)
[2021-03-04] MEDS: ASPIRIN 81 MG ECTAB PO SCH (09:57)
[2021-03-04] MEDS: DONEPEZIL HCL 10 MG TAB PO SCH (09:57)
[2021-03-04] MEDS: ENALAPRIL MALEATE 10 MG TAB PO SCH (09:58)
[2021-03-04] MEDS: PANTOprazole 40 MG TAB PO SCH (09:58)
[2021-03-04] MEDS: guaiFENesin 600 MG TABCR PO SCH ×2 (09:58→20:46)
[2021-03-04] MEDS: amLODIPine BESYLATE 5 MG TAB PO SCH (09:58)
[2021-03-04] MEDS: TAMSULOSIN HCL 0.4 MG CAP PO SCH (09:58)
[2021-03-04] MEDS: OLODATEROL HCL 2.5MCG/ACTUATION 60 PUFFS/INHALER INH SCH (10:53)
[2021-03-04] MEDS: cefTRIAXone SODIUM 2,000 MG in DEXTROSE 5% 50 ML IV SCH (12:01)
[2021-03-04] MEDS: MICONAZOLE NITRATE POWDER 43 GM EXT SCH (12:01)
--- NOTE | 2021-03-04 14:16 | Hospitalist Progress Note ---
Date of Service March 04, 2021 Assessment & Plan (1) Pneumonia: Plan: Clinically picture consistent with pneumonia and on imaging this is present at bilateral bases. Patient is improved on ceftriaxone and doxycycline. To shorten the course of antibiotics and make med dosing once daily switching doxycycline to azithromycin for total 3-day dose of 500 mg daily. Otherwise continue ceftriaxone and supportive care along with pulmonary toilet efforts. Patient is not walking around much, typically walks with a cane, however encouraged to mobilize as this will help his breathing. Negative Covid swab, patient has remained afebrile. Per previous hospitalist- discussed the utility of RSV and flu swabs at this point and daughter agrees to decline this testing. (2) COPD (chronic obstructive pulmonary disease): Plan: chronic, stable no wheezing. Cont home inhalers. Of note, daughter requested a different inhaler at discharge which was switched. She is a lead pharmacist for [employer] and understands what medications will be covered by his insurance. The change was made so that he would receive a better vehicle instead of the diskus which is not user friendly. (3) DM II (diabetes mellitus, type II), controlled: Plan: diet controlled. (4) HLD (hyperlipidemia): Plan: -Continue atorvastatin 40 mg daily per home regimen. (5) Lewy body dementia: Plan: newly diagnosed 6 months ago. Frequent falls at home in the last 6 months. PT/OT assessments. (6) CKD (chronic kidney disease), stage III: Plan: -Chronic, baseline appears to be around 1.4-1.5, 1.67 on admission -Continue medications [employer] (7) Obesity (BMI 30-39.9): Plan: - BMI 39.8, counselling and outpt follow up recommended (8) BPH (benign prostatic hyperplasia): Plan: - Cont finasteride and tamsulosin DVT ppx: - teds, heparin subcu CODE: Full code Dispo: to home when clinically improved Admission and Anticipated Discharge Date Admission Date: March 02, 2021 Subjective 75 yo M with hypoxia in the clinic sent to the ER and found to have pneumonia. Covid is negative. 1 week of worsening fatigue nasal congestion shortness of breath on exertion and cough with mucus production, 3 days of diarrhea. Started on ceftriaxone and doxycycline. Continues on as needed albuterol nebulizers, Mucinex flutter valve and incentive spirometry. Patient does not require oxygen at baseline. Has a history of COPD. Has a history of Lewy body dementia with 6 recent falls in the past 6 months per daughter. This AM pt sleepy, also retaining urine 600c after staright cath Last night pt confused in ER holding area Daughter is a senior pharmacist with [employer] present at the bedside and updated. Review of Systems Review of Systems: Unobtainable due to cognitive status (pt sleepy today and hx of dementia) Physical Exam Physical Exam: CONSTITUTIONAL: WNWD, eldrely M in NAD, drowsy EYES: PERRL, normal conjunctivae, no scleral icterus ENT: external ear and nose normal,MMM, NC in place. NECK:supple RESPIRATORY: clear to auscultation bilaterally, no crackles, rales or wheezes, normal respiratory effort CARDIOVASCULAR: regular rate and rhythm, S1 and 2 heard without murmurs, gallops or rubs, no JVD, no peripheral edema GASTROINTESTINAL: soft, nontender, ND, no guarding MUSCULOSKELETAL: strength 5/5 throughout, head is normocephalic and atraumatic SKIN: warm and dry NEUROLOGIC: Drowsy but able to be awakened, able to answer simple questions appropriately. No facial symmetry. Moves extremities. Results & Data Results & Data ([facility]) Vital Signs (Past 12 Hours) Vital Signs Temp Pulse Pulse Resp BP BP Pulse Ox 03/04/21 11:08 36.7 C 69 18 150/78 H 93 03/04/21 09:56 80 117/59 L 03/04/21 07:19 36.6 C 80 18 149/85 H 95 03/04/21 07:00 77 03/04/21 06:00 36.7 C 79 18 127/73 91 Laboratory Results 03/04/21 03/04/21 Range/Units 07:12 07:12 WBC 9.92 (4.8-10.8) K/uL RBC 4.04 L (4.7-6.1) M/uL Hgb 11.8 L (14.0-18.0) g/dL Hct 40.6 L (42-52) % MCV 100.5 H (80-100) fL MCH 29.2 (25-34) pg MCHC 29.1 L (32-36) g/dL RDW Std Deviation 54.9 H (36.4-46.3) fL RDW Coeff of Dipesh 15.1 H (11.5-14.5) % Plt Count 143 (130-400) K/uL MPV 10.9 H (7.4-10.4) fL Sodium 143 (136-145) mmol/L Potassium 4.1 (3.5-5.1) mmol/L Chloride 108 H (98-107) mmol/L Carbon Dioxide 32 (21-32) mmol/L Anion Gap 4.0 (3-11) BUN 28 H (7-18) mg/dl Creatinine 1.56 H (0.6-1.4) mg/dl Est Cr Clr Drug Dosing 46.8 ml/min Est GFR ( Amer) 48.9 ml/min Est GFR (Non-Af Amer) 42.2 ml/min BUN/Creatinine Ratio 17.9 (10-20) Glucose 108 H (70-99) mg/dl Calcium 8.7 (8.5-10.1) mg/dl Phosphorus 4.9 (2.5-4.9) mg/dl Magnesium 1.7 L (1.8-2.4) mg/dl Total Bilirubin 0.6 (0.2-1) mg/dl AST 23 (15-37) U/L ALT 34 (12-78) Alkaline Phosphatase 76 (45-117) U/L Total Protein 6.6 (6.4-8.2) gm/dl Albumin 3.2 L (3.4-5.0) gm/dl Globulin 3.4 (2.5-4.0) gm/dl Albumin/Globulin Ratio 0.9 (0.9-2) Medications Administered Current Inpatient Medications Acetaminophen (Acetaminophen 325 Mg Tab) 650 mg PO Q4H PRN PRN Reason: Moderate Pain Stop: 04/01/21 16:50 Albuterol (Albut/Ipratrop 3mg/0.5mg Neb 3 Ml Vial) 3 ml NEB Q4R PRN; Protocol PRN Reason: Shortness Of Breath Or Wheezing Stop: 04/01/21 14:59 [facility]urin[facility] ([facility] 100 Mg Tab) [facility]: 04/02/21 08:59 Last Admin: 03/04/21 09:57 Dose: 100 mg Documented by: Amlodipine Besylate (Amlodipine Besylate 5 Mg Tab) 10 mg PO [facility] Stop: 04/02/21 08:59 Last Admin: 03/04/21 09:58 Dose: 10 mg Documented by: Aspirin (Aspirin 81 Mg Ectab) 81 mg PO QAM [facility] Stop: 04/02/21 08:59 Last Admin: 03/04/21 09:57 Dose: 81 mg Documented by: Atorvastatin Calcium (Atorvastatin 40 Mg Tab) 40 mg PO HS [facility] Stop: 04/01/21 20:59 Last Admin: 03/03/21 21:09 Dose: Not Given Documented by: Azithromycin (Azithromycin 250 Mg Tab) 500 mg PO Q24H [facility] Stop: 03/06/21 18:29 Last Admin: 03/03/21 19:36 Dose: 500 mg Documented by: Carvedilol (Carvedilol 25 Mg Tab) 25 mg PO BID [facility] Stop: 04/01/21 20:59 Last Admin: 03/04/21 09:57 Dose: 25 mg Documented by: Donepezil HCl (Donepezil Hcl 10 Mg Tab) 10 mg PO QAM [facility] Stop: 04/02/21 08:59 Last Admin: 03/04/21 09:57 Dose: 10 mg Documented by: Enalapril Maleate (Enalapril Maleate 10 Mg Tab) [facility]: 04/02/21 08:59 Last Admin: 03/04/21 09:58 Dose: 20 mg Documented by: Finasteride (Finasteride 5 Mg Tab) 5 mg PO QAM [facility] Stop: 04/02/21 08:59 Last Admin: 03/04/21 09:57 Dose: 5 mg Documented by: Furosemide (Furosemide 20 Mg Tab) 20 mg PO QAM [facility] Stop: 04/02/21 08:59 Last Admin: 03/04/21 09:57 Dose: 20 mg Documented by: Guaifenesin (Guaifenesin 600 Mg Tabcr) 1,200 mg PO Q12 [facility] Stop: 04/01/21 20:59 Last Admin: 03/04/21 09:58 Dose: 1,200 mg Documented by: Heparin Sodium (Porcine) (Heparin Sod 5,000 Unit/0.5 Ml Vial) 5,000 units SQ Q8 [facility] Stop: 04/01/21 21:59 Last Admin: 03/04/21 13:34 Dose: 5,000 units Documented by: Ceftriaxone Sodium 2,000 mg/ (Dextrose) 70 mls @ 140 mls/hr IV Q24H [facility] Stop: 03/10/21 12:59 Last Infusion: 03/04/21 13:24 Dose: Infused Documented by: Magnesium Sulfate/Dextrose (Magnesium Sulfate / D5w) 1 gm in 100 mls @ 50 mls/hr IV ONE ONE Stop: 03/04/21 16:29 Lactobacillus Acidoph/Casei/Rhamnos (Advanced Probiotic 1250 Mg Capsule) 2 cap PO DAILY [facility] Stop: 04/03/21 08:59 Last Admin: 03/04/21 09:57 Dose: 2 cap Documented by: Levothyroxine Sodium (Levothyroxine Sodium 100 Mcg Tablet) 100 mcg PO DAILYBB [facility] Stop: 04/02/21 06:29 Last Admin: 03/04/21 06:18 Dose: Not Given Documented by: Miconazole Nitrate (Miconazole Nitrate Powder 43 Gm) 1 appln EXT PRN [facility] Stop: 04/03/21 10:44 Last Admin: 03/04/21 12:01 Dose: 1 appln Documented by: Olodaterol (Olodaterol Hcl 2.5mcg/Actuation 60 Puffs/Inhaler) 2 puffs INH QAM [facility] Stop: 04/02/21 08:59 Last Admin: 03/04/21 10:53 Dose: 2 puffs Documented by: Ondansetron HCl (Ondansetron Inj 2 Mg/Ml 2 Ml Vial) 4 mg IV Q4H PRN PRN Reason: Nausea And Vomiting Stop: 04/01/21 16:50 Pantoprazole Sodium (Pantoprazole 40 Mg Tab) 40 mg PO QAM [facility] Stop: 04/02/21 08:59 Last Admin: 03/04/21 09:58 Dose: 40 mg Documented by: Sertraline HCl (Sertraline Hcl 100 Mg Tablet) 100 mg PO HS [facility] Stop: 04/01/21 20:59 Last Admin: 03/03/21 21:09 Dose: Not Given Documented by: Tamsulosin HCl (Tamsulosin Hcl 0.4 Mg Cap) 0.4 mg PO QAM [facility] Stop: 04/02/21 08:59 Last Admin: 03/04/21 09:58 Dose: 0.4 mg Documented by:
[2021-03-04] MEDS ORDERED: MAGNESIUM SULFATE / D5W 1 GM/100 ML BAG IV ONE (14:30)
[2021-03-04] MEDS: AZITHROMYCIN 250 MG TAB PO SCH (17:39)
[2021-03-04] MEDS: ATORVASTATIN 40 MG TAB PO SCH (20:45)
[2021-03-04] MEDS: SERTRALINE HCL 100 MG TABLET PO SCH (20:46)
[2021-03-05] MEDS: LEVOTHYROXINE SODIUM 100 MCG TABLET PO SCH (06:04)
[2021-03-05] MEDS: HEPARIN SOD 5,000 UNIT/0.5 ML VIAL SQ SCH ×3 (06:06→20:33)
[2021-03-05] MEDS: amLODIPine BESYLATE 5 MG TAB PO SCH (08:16)
[2021-03-05] MEDS: ASPIRIN 81 MG ECTAB PO SCH (08:16)
[2021-03-05] MEDS: allopurinoL 100 MG TAB PO SCH (08:16)
[2021-03-05] MEDS: carvediloL 25 MG TAB PO SCH ×2 (08:17→20:32)
[2021-03-05] MEDS: FUROSEMIDE 20 MG TAB PO SCH (08:17)
[2021-03-05] MEDS: FINASTERIDE 5 MG TAB PO SCH (08:17)
[2021-03-05] MEDS: DONEPEZIL HCL 10 MG TAB PO SCH (08:17)
[2021-03-05] MEDS: ENALAPRIL MALEATE 10 MG TAB PO SCH (08:17)
[2021-03-05] MEDS: TAMSULOSIN HCL 0.4 MG CAP PO SCH (08:18)
[2021-03-05] MEDS: ADVANCED PROBIOTIC 1250 MG CAPSULE PO SCH (08:18)
[2021-03-05] MEDS: guaiFENesin 600 MG TABCR PO SCH ×2 (08:18→20:32)
[2021-03-05] MEDS: PANTOprazole 40 MG TAB PO SCH (08:18)
[2021-03-05] MEDS: OLODATEROL HCL 2.5MCG/ACTUATION 60 PUFFS/INHALER INH SCH (08:21)
[2021-03-05] MEDS: MICONAZOLE NITRATE POWDER 43 GM EXT SCH (08:24)
[2021-03-05 09:32] LABS: Hematocrit (blood only) 38.1 % (42-52); Hemoglobin 11.1 g/dL (14.0-18.0); Mean Corpuscular Hemoglobin 29.1 pg (25-34); Mean Corpuscular Hgb Conc 29.1 g/dL (32-36); Mean Corpuscular Volume 99.7 fL (80-100); Mean Platelet Volume 10.9 fL (7.4-10.4); Platelet Count 135 K/uL (130-400); RDW Coefficient of Variation 15.1 % (11.5-14.5); RDW Standard Deviation 54.8 fL (36.4-46.3); Red Blood Count 3.82 M/uL (4.7-6.1); White Blood Count 8.13 K/uL (4.8-10.8)
[2021-03-05 09:43] LABS: Partial Thromboplastin Ratio 1.1; Partial Thromboplastin Time 27.9 Seconds (21.0-31.0)
[2021-03-05 09:51] LABS: Creatinine Clr Calc Pharmacy 46.1 ml/min; Est GFR (African American) 46.4 ml/min; Potassium 3.9 mmol/L (3.5-5.1)
[2021-03-05 10:00] LABS: Albumin Globulin Ratio 0.9 (0.9-2); Bilirubin,Total 0.3 mg/dl (0.2-1); Globulin 3.3 gm/dl (2.5-4.0); Phosphorus 2.4 mg/dl (2.5-4.9); Total Protein 6.3 gm/dl (6.4-8.2)
[2021-03-05] MEDS: cefTRIAXone SODIUM 2,000 MG in DEXTROSE 5% 50 ML IV SCH (12:08)
--- NOTE | 2021-03-05 12:24 | Hospitalist Progress Note ---
Date of Service March 05, 2021 Assessment & Plan (1) Pneumonia: Plan: Clinically picture consistent with pneumonia and on imaging this is present at bilateral bases. Patient is improved on ceftriaxone and doxycycline. To shorten the course of antibiotics and make med dosing once daily switching doxycycline to azithromycin for total 3-day dose of 500 mg daily. Otherwise continue ceftriaxone and supportive care along with pulmonary toilet efforts. Patient is not walking around much, typically walks with a cane, however encouraged to mobilize as this will help his breathing. Negative Covid swab, patient has remained afebrile. Per previous hospitalist- discussed the utility of RSV and flu swabs at this point and daughter agrees to decline this testing. Patient remains on 2 to 3 L of O2 however his dementia also plays a role, and patient is becoming more confused and agitated while in the hospital Discussed with the daughter, who would like to take him home to help with confusion Will obtain 2 step study, so patient could be discharged with oxygen as needed Plan to discharge tomorrow on p.o. antibiotics, Mucinex, pulmonary toilet (2) COPD (chronic obstructive pulmonary disease): Plan: chronic, stable no wheezing. Cont home inhalers. Of note, daughter requested a different inhaler at discharge which was switched. She is a lead pharmacist for [employer] and understands what medications will be covered by his insurance. The change was made so that he would receive a better vehicle instead of the diskus which is not user friendly. (3) DM II (diabetes mellitus, type II), controlled: Plan: diet controlled. (4) HLD (hyperlipidemia): Plan: -Continue atorvastatin 40 mg daily per home regimen. (5) Lewy body dementia: Plan: newly diagnosed 6 months ago. Frequent falls at home in the last 6 months. PT/OT assessments. (6) CKD (chronic kidney disease), stage III: Plan: -Chronic, baseline appears to be around 1.4-1.5, 1.67 on admission -Continue medications [employer] CO[employer]ATOR (7) Obesity (BMI 30-39.9): Plan: - BMI 39.8, counselling and outpt follow up recommended (8) BPH (benign prostatic hyperplasia): Plan: - Cont finasteride and tamsulosin DVT ppx: - teds, heparin subcu CODE: Full code Dispo: to home when clinically improved Admission and Anticipated Discharge Date Admission Date: March 02, 2021 Subjective Patient seen in follow-up of pneumonia, hypoxia, dementia This morning patient was code wright, as he became agitated, confused This afternoon he sitting up in the chair, he is awake, per nursing staff has been awake and alert all day He appears comfortable, and breathing with supplemental oxygen Patient's daughter is at the bedside Unfortunately patient is still confused, and not easily participating in conversation and physical exam Patient does not require oxygen at baseline. Has a history of COPD. Has a history of Lewy body dementia with 6 recent falls in the past 6 months per daughter. Discussed in detail with daughter, she would like to take patient home, to help with confusion as this seems to be worse than his usual. Review of Systems Review of Systems: Unobtainable due to cognitive status Physical Exam Physical Exam: CONSTITUTIONAL: WNWD, eldrely M in NAD,on 2-3 L NC EYES: PERRL, normal conjunctivae, no scleral icterus ENT: external ear and nose normal,MMM, NC in place. NECK:supple RESPIRATORY: clear to auscultation bilaterally, no crackles, rales or wheezes, normal respiratory effort CARDIOVASCULAR: regular rate and rhythm, S1 and 2 heard without murmurs, gallops or rubs, no JVD, no peripheral edema GASTROINTESTINAL: soft, nontender, ND, no guarding MUSCULOSKELETAL: strength 5/5 throughout, head is normocephalic and atraumatic SKIN: warm and dry NEUROLOGIC: Awake and alert, able to answer simple questions appropriately, however somewhat confused and not completely cooperative. No facial symmetry. Moves extremities. Results & Data Results & Data ([facility]) Vital Signs (Past 12 Hours) Vital Signs Temp Pulse Pulse Resp BP Pulse Ox 03/05/21 11:37 37 C 71 20 148/77 H 95 03/05/21 07:34 36.6 C 83 20 165/74 H 90 03/05/21 07:00 79 03/05/21 03:54 36.6 C 76 20 120/66 90 Laboratory Results 03/05/21 03/05/21 03/05/21 Range/Units 09:15 09:15 09:15 WBC 8.13 (4.8-10.8) K/uL RBC 3.82 L (4.7-6.1) M/uL Hgb 11.1 L (14.0-18.0) g/dL Hct 38.1 L (42-52) % MCV 99.7 (80-100) fL MCH 29.1 (25-34) pg MCHC 29.1 L (32-36) g/dL RDW Std Deviation 54.8 H (36.4-46.3) fL RDW Coeff of Dipesh 15.1 H (11.5-14.5) % Plt Count 135 (130-400) K/uL MPV 10.9 H (7.4-10.4) fL APTT 27.9 (21.0-31.0) Seconds PTT Ratio 1.1 Sodium 140 (136-145) mmol/L Potassium 3.9 (3.5-5.1) mmol/L Chloride 106 (98-107) mmol/L Carbon Dioxide 33 H (21-32) mmol/L Anion Gap 1.0 L (3-11) BUN 26 H (7-18) mg/dl Creatinine 1.63 H (0.6-1.4) mg/dl Est Cr Clr Drug Dosing 46.1 ml/min Est GFR ( Amer) 46.4 ml/min Est GFR (Non-Af Amer) 40.0 ml/min BUN/Creatinine Ratio 16.0 (10-20) Glucose 175 H (70-99) mg/dl Calcium 9.0 (8.5-10.1) mg/dl Phosphorus 2.4 L D (2.5-4.9) mg/dl Magnesium 2.0 (1.8-2.4) mg/dl Total Bilirubin 0.3 (0.2-1) mg/dl AST 20 (15-37) U/L ALT 34 (12-78) Alkaline Phosphatase 73 (45-117) U/L Total Protein 6.3 L (6.4-8.2) gm/dl Albumin 3.0 L (3.4-5.0) gm/dl Globulin 3.3 (2.5-4.0) gm/dl Albumin/Globulin Ratio 0.9 (0.9-2) Medications Administered Current Inpatient Medications Acetaminophen (Acetaminophen 325 Mg Tab) 650 mg PO Q4H PRN PRN Reason: Moderate Pain Stop: 04/01/21 16:50 Albuterol (Albut/Ipratrop 3mg/0.5mg Neb 3 Ml Vial) 3 ml NEB Q4R PRN; Protocol PRN Reason: Shortness Of Breath Or Wheezing Stop: 04/01/21 14:59 Allopurinol (Allop[place]ol 100 Mg Tab) [place] [facility] Stop: 04/02/21 08:59 Last Admin: 03/05/21 08:16 Dose: 100 mg Documented by: Amlodipine Besylate (Amlodipine Besylate 5 Mg Tab) 10 mg PO QAM [facility] Stop: 04/02/21 08:59 Last Admin: 03/05/21 08:16 Dose: 10 mg Documented by: Aspirin (Aspirin 81 Mg Ectab) 81 mg PO QAM [facility] Stop: 04/02/21 08:59 Last Admin: 03/05/21 08:16 Dose: 81 mg Documented by: Atorvastatin Calcium (Atorvastatin 40 Mg Tab) 40 mg PO HS [facility] Stop: 04/01/21 20:59 Last Admin: 03/04/21 20:45 Dose: 40 mg Documented by: Azithromycin (Azithromycin 250 Mg Tab) 500 mg PO Q24H [facility] Stop: 03/06/21 18:29 Last Admin: 03/04/21 17:39 Dose: 500 mg Documented by: Carvedilol (Carvedilol 25 Mg Tab) 25 mg PO BID [facility] Stop: 04/01/21 20:59 Last Admin: 03/05/21 08:17 Dose: 25 mg Documented by: Donepezil HCl (Donepezil Hcl 10 Mg Tab) 10 mg PO QAM [facility] Stop: 04/02/21 08:59 Last Admin: 03/05/21 08:17 Dose: 10 mg Documented by: Enalapril Maleate (Enalapril Maleate 10 Mg Tab) 20 mg [place] [facility] Stop: 04/02/21 08:59 Last Admin: 03/05/21 08:17 Dose: 20 mg Documented by: Finasteride (Finasteride 5 Mg Tab) 5 mg [place] Stop: 04/02/21 08:59 Last Admin: 03/05/21 08:17 Dose: 5 mg Documented by: Furosemide (Furosemide 20 Mg Tab) 20 mg PO QAM [facility] Stop: 04/02/21 08:59 Last Admin: 03/05/21 08:17 Dose: 20 mg Documented by: Guaifenesin (Guaifenesin 600 Mg Tabcr) 1,200 mg PO Q12 [facility] Stop: 04/01/21 20:59 Last Admin: 03/05/21 08:18 Dose: 1,200 mg Documented by: Heparin Sodium (Porcine) (Heparin Sod 5,000 Unit/0.5 Ml Vial) 5,000 units SQ Q8 [facility] Stop: 04/01/21 21:59 Last Admin: 03/05/21 06:06 Dose: 5,000 units Documented by: Ceftriaxone Sodium 2,000 mg/ (Dextrose) 70 mls @ 140 mls/hr IV Q24H [facility] Stop: 03/10/21 12:59 Last Admin: 03/05/21 12:08 Dose: 140 mls/hr Documented by: Lactobacillus Acidoph/Casei/Rhamnos (Advanced Probiotic 1250 Mg Capsule) 2 cap PO DAILY [facility] Stop: 04/03/21 08:59 Last Admin: 03/05/21 08:18 Dose: 2 cap Documented by: Levothyroxine Sodium (Levothyroxine Sodium 100 Mcg Tablet) 100 mcg PO DAILYBB [facility] Stop: 04/02/21 06:29 Last Admin: 03/05/21 06:04 Dose: 100 mcg Documented by: Miconazole Nitrate (Miconazole Nitrate Powder 43 Gm) 1 appln EXT PRN [facility] Stop: 04/03/21 10:44 Last Admin: 03/05/21 08:24 Dose: 1 appln Documented by: Olodaterol (Olodaterol Hcl 2.5mcg/Actuation 60 Puffs/Inhaler) 2 puffs INH QAM [facility] Stop: 04/02/21 08:59 Last Admin: 03/05/21 08:21 Dose: 2 puffs Documented by: Ondansetron HCl (Ondansetron Inj 2 Mg/Ml 2 Ml Vial) 4 mg IV Q4H PRN PRN Reason: Nausea And Vomiting Stop: 04/01/21 16:50 Pantoprazole Sodium (Pantoprazole 40 Mg Tab) 40 mg PO QAM [facility] Stop: 04/02/21 08:59 Last Admin: 03/05/21 08:18 Dose: 40 mg Documented by: Sertraline HCl (Sertraline Hcl 100 Mg Tablet) 100 mg PO HS [facility] Stop: 04/01/21 20:59 Last Admin: 03/04/21 20:46 Dose: 100 mg Documented by: Tamsulosin HCl (Tamsulosin Hcl 0.4 Mg Cap) 0.4 mg PO QAM [facility] Stop: 04/02/21 08:59 Last Admin: 03/05/21 08:18 Dose: 0.4 mg Documented by:
[2021-03-05] MEDS: AZITHROMYCIN 250 MG TAB PO SCH (18:00)
[2021-03-05] MEDS ORDERED: LORazepam 0.5 MG TAB PO STA (18:20)
[2021-03-05] MEDS ORDERED: HALOPERIDOL LACTATE 5 MG/ML 1 ML VIAL IM PRN (19:50)
--- NOTE | 2021-03-05 19:52 | Communication Note ---
Date of Service: March 05, 2021 Notified by RN of agitation. AP Delirium Zyprexa as needed Change azithromycin to doxycycline for atypical coverage given potential QT prolongation interaction between Zyprexa and azithromycin.
[2021-03-05] MEDS: SERTRALINE HCL 100 MG TABLET PO SCH (20:32)
[2021-03-05] MEDS: ATORVASTATIN 40 MG TAB PO SCH (20:32)
[2021-03-06] MEDS: LEVOTHYROXINE SODIUM 100 MCG TABLET PO SCH ×2 (06:03→06:16)
[2021-03-06] MEDS: HEPARIN SOD 5,000 UNIT/0.5 ML VIAL SQ SCH (06:03)
[2021-03-06] MEDS: allopurinoL 100 MG TAB PO SCH (08:08)
[2021-03-06] MEDS: ADVANCED PROBIOTIC 1250 MG CAPSULE PO SCH (08:08)
[2021-03-06] MEDS: carvediloL 25 MG TAB PO SCH (08:08)
[2021-03-06] MEDS: DONEPEZIL HCL 10 MG TAB PO SCH (08:09)
[2021-03-06] MEDS: FINASTERIDE 5 MG TAB PO SCH (08:09)
[2021-03-06] MEDS: guaiFENesin 600 MG TABCR PO SCH (08:09)
[2021-03-06] MEDS: ASPIRIN 81 MG ECTAB PO SCH (08:10)
[2021-03-06] MEDS: FUROSEMIDE 20 MG TAB PO SCH (08:10)
[2021-03-06] MEDS: PANTOprazole 40 MG TAB PO SCH (08:10)
[2021-03-06] MEDS: amLODIPine BESYLATE 5 MG TAB PO SCH (08:10)
[2021-03-06] MEDS: TAMSULOSIN HCL 0.4 MG CAP PO SCH (08:10)
[2021-03-06] MEDS: ENALAPRIL MALEATE 10 MG TAB PO SCH (08:10)
[2021-03-06] MEDS: OLODATEROL HCL 2.5MCG/ACTUATION 60 PUFFS/INHALER INH SCH (08:11)
[2021-03-06 08:24] LABS: Partial Thromboplastin Ratio 1.2; Partial Thromboplastin Time 30.5 Seconds (21.0-31.0)
[2021-03-06] MEDS ORDERED: clonazePAM 0.5 MG TAB PO PRN (09:00)
[2021-03-06] MEDS ORDERED: DOXYCYCLINE HYCLATE 100 MG CAP PO SCH (09:00)
--- NOTE | 2021-03-06 09:33 | Hospitalist Progress Note ---
Date of Service March 06, 2021 Assessment & Plan (1) Pneumonia: Plan: Clinically picture consistent with pneumonia and on imaging this is present at bilateral bases. Patient is improved on ceftriaxone and doxycycline. To shorten the course of antibiotics and make med dosing once daily switching doxycycline to azithromycin for total 3-day dose of 500 mg daily. Otherwise continue ceftriaxone and supportive care along with pulmonary toilet efforts. Patient is not walking around much, typically walks with a cane, however encouraged to mobilize as this will help his breathing. Negative Covid swab, patient has remained afebrile. Per previous hospitalist- discussed the utility of RSV and flu swabs at this point and daughter agrees to decline this testing. Patient remains on 2 to 3 L of O2 however his dementia also plays a role, and patient is becoming more confused and agitated while in the hospital Discussed with the daughter, who would like to take him home to help with confusion Obtained 2 step study, so patient could be discharged with oxygen -he will need 3 L of O2 via NC continuously Plan to discharge on p.o. antibiotics, Mucinex, pulmonary toilet (2) COPD (chronic obstructive pulmonary disease): Plan: chronic, stable no wheezing. Cont home inhalers. Of note, daughter requested a different inhaler at discharge which was switched. She is a lead pharmacist for [employer] and understands what medications will be covered by his insurance. The change was made so that he would receive a better vehicle instead of the diskus which is not user friendly. (3) DM II (diabetes mellitus, type II), controlled: Plan: diet controlled. (4) HLD (hyperlipidemia): Plan: -Continue atorvastatin 40 mg daily per home regimen. (5) Lewy body dementia: Plan: newly diagnosed 6 months ago. Frequent falls at home in the last 6 months. PT/OT assessments. (6) CKD (chronic kidney disease), stage III: Plan: -Chronic, baseline appears to be around 1.4-1.5, 1.67 on admission -Continue medications [employer] (7) Obesity (BMI 30-39.9): Plan: - BMI 39.8, counselling and outpt follow up recommended (8) BPH (benign prostatic hyperplasia): Plan: - Cont finasteride and tamsulosin DVT ppx: - teds, heparin subcu CODE: Full code Dispo: home w/ family, poss. HH Admission and Anticipated Discharge Date Admission Date: March 02, 2021 Subjective Patient seen in follow-up of pneumonia, hypoxia, dementia This morning patient sleeping, however easily arousable, is more cooperative, however says that he is getting anxious He called his daughter, who contacted me, and would like to take him home as further discussed He appears comfortable, and breathing with supplemental oxygen 2 step study ordered Patient does not require oxygen at baseline. Has a history of COPD. Has a history of Lewy body dementia with 6 recent falls in the past 6 months per daughter. Discussed in detail with daughter, she would like to take patient home, to help with confusion as this seems to be worse than his usual. She says patient was never in hospital before. Review of Systems Review of Systems: Unobtainable due to cognitive status Physical Exam Physical Exam: CONSTITUTIONAL: WNWD, eldrely M in NAD,on 2-3 L NC EYES: PERRL, normal conjunctivae, no scleral icterus ENT: external ear and nose normal,MMM, NC in place. NECK:supple RESPIRATORY: normal respiratory effort, minimal rhonchi, no wheezing CARDIOVASCULAR: regular rate and rhythm, S1 and 2 heard without murmurs, gallops or rubs, no JVD, no peripheral edema GASTROINTESTINAL: soft, nontender, ND, no guarding MUSCULOSKELETAL: strength 5/5 throughout, head is normocephalic and atraumatic SKIN: warm and dry NEUROLOGIC: Sleepy this morning, however easily arousable, able to answer only some questions appropriately (d/t dementia). No facial symmetry. Moves extremities. Results & Data Results & Data ([facility]) Vital Signs (Past 12 Hours) Vital Signs Temp Pulse Pulse Resp BP BP Pulse Ox 03/06/21 07:43 37.0 C 78 16 170/75 H 95 03/06/21 07:25 73 03/06/21 00:08 67 03/06/21 00:05 03/05/21 23:01 36.8 C 67 18 129/71 94 Pulse Ox 03/06/21 07:43 03/06/21 07:25 03/06/21 00:08 03/06/21 00:05 94 03/05/21 23:01 Medications Administered Current Inpatient Medications Acetaminophen (Acetaminophen 325 Mg Tab) 650 mg PO Q4H PRN PRN Reason: Moderate Pain Stop: 04/01/21 16:50 Last Admin: 01/01/22 20:31 Dose: 650 mg Documented by: Albuterol (Albut/Ipratrop 3mg/0.5mg Neb 3 Ml Vial) 3 ml NEB Q4R PRN; Protocol PRN Reason: Shortness Of Breath Or Wheezing Stop: 04/01/21 14:59 [facility]opurin[facility] ([facility] 100 Mg Tab) [facility] [place]: 04/02/21 08:59 Last Admin: 03/06/21 08:08 Dose: 100 mg Documented by: Amlodipine Besylate (Amlodipine Besylate 5 Mg Tab) [facility] [place]: 04/02/21 08:59 Last Admin: 03/06/21 08:10 Dose: 10 mg Documented by: Aspirin (Aspirin 81 Mg Ectab) [facility] [place] Stop: 04/02/21 08:59 Last Admin: 03/06/21 08:10 Dose: 81 mg Documented by: Atorvastatin Calcium (Atorvastatin 40 Mg Tab) 40 mg PO HS [facility] Stop: 04/01/21 20:59 Last Admin: 03/05/21 20:32 Dose: 40 mg Documented by: Carvedilol (Carvedilol 25 Mg Tab) 25 mg PO BID [facility] Stop: 04/01/21 20:59 Last Admin: 03/06/21 08:08 Dose: 25 mg Documented by: Clonazepam (Clonazepam 0.5 Mg Tab) 0.5 mg PO BID PRN PRN Reason: agitation Stop: 04/05/21 08:59 Donepezil HCl (Donepezil Hcl 10 Mg Tab) 10 mg PO [facility] Stop: 04/02/21 08:59 Last Admin: 03/06/21 08:09 Dose: 10 mg Documented by: Doxycycline Hyclate (Doxycycline Hyclate 100 Mg Cap) 100 mg PO BID [facility] Stop: 03/13/21 08:59 Last Admin: 03/06/21 08:08 Dose: 100 mg Documented by: Enalapril Maleate (Enalapril Maleate 10 Mg Tab) [facility] [place]: 04/02/21 08:59 Last Admin: 03/06/21 08:10 Dose: 20 mg Documented by: Finasteride (Finasteride 5 Mg Tab) 5 mg PO [facility] Stop: 04/02/21 08:59 Last Admin: 03/06/21 08:09 Dose: 5 mg Documented by: Furosemide (Furosemide 20 Mg Tab) 20 mg PO QAM [facility] Stop: 04/02/21 08:59 Last Admin: 03/06/21 08:10 Dose: 20 mg Documented by: Guaifenesin (Guaifenesin 600 Mg Tabcr) 1,200 mg PO Q12 [facility] Stop: 04/01/21 20:59 Last Admin: 03/06/21 08:09 Dose: 1,200 mg Documented by: Haloperidol Lactate (Haloperidol Lactate 5 Mg/Ml 1 Ml Vial) 2 mg IM Q2H PRN PRN Reason: Agitation Stop: 04/04/21 19:49 Heparin Sodium (Porcine) (Heparin Sod 5,000 Unit/0.5 Ml Vial) 5,000 units SQ Q8 [facility] Stop: 04/01/21 21:59 Last Admin: 03/06/21 06:03 Dose: 5,000 units Documented by: Ceftriaxone Sodium 2,000 mg/ (Dextrose) 70 mls @ 140 mls/hr IV Q24H [facility] Stop: 03/10/21 12:59 Last Infusion: 03/05/21 12:38 Dose: Infused Documented by: Lactobacillus Acidoph/Casei/Rhamnos (Advanced Probiotic 1250 Mg Capsule) 2 cap PO DAILY [facility] Stop: 04/03/21 08:59 Last Admin: 03/06/21 08:08 Dose: 2 cap Documented by: Levothyroxine Sodium (Levothyroxine Sodium 100 Mcg Tablet) 100 mcg PO DAILYBB [facility] Stop: 04/02/21 06:29 Last Admin: 03/06/21 06:16 Dose: Not Given Documented by: Miconazole Nitrate (Miconazole Nitrate Powder 43 Gm) 1 appln EXT PRN [facility] Stop: 04/03/21 10:44 Last Admin: 03/05/21 08:24 Dose: 1 appln Documented by: Olodaterol (Olodaterol Hcl 2.5mcg/Actuation 60 Puffs/Inhaler) 2 puffs INH QAM [facility] Stop: 04/02/21 08:59 Last Admin: 03/06/21 08:11 Dose: 2 puffs Documented by: Ondansetron HCl (Ondansetron Inj 2 Mg/Ml 2 Ml Vial) 4 mg IV Q4H PRN PRN Reason: Nausea And Vomiting Stop: 04/01/21 16:50 Pantoprazole Sodium (Pantoprazole 40 Mg Tab) 40 mg PO [facility] Stop: 04/02/21 08:59 Last Admin: 03/06/21 08:10 Dose: 40 mg Documented by: Sertraline HCl (Sertraline Hcl 100 Mg Tablet) 100 mg PO [facility] Stop: 04/01/21 20:59 Last Admin: 03/05/21 20:32 Dose: 100 mg Documented by: Tamsulosin HCl (Tamsulosin Hcl 0.4 Mg Cap) 0.4 mg PO [facility] Stop: 04/02/21 08:59 Last Admin: 03/06/21 08:10 Dose: 0.4 mg Documented by:
--- NOTE | 2021-03-06 10:41 | Discharge Summary ---
Date of Service March 06, 2021 Admission HPI Per Admitting Provider This is a 75 yo M with PMHx of cOPD, asthma, Patient presented to his PCP office this morning for an annual wellness visit. When he came in his O2 sats were registering in the upper 70s, best O2 sats in the office were mid 80s. He typically does not require any oxygen at home, and was placed on 4L via NC in the office and sent here. His Covid swab is negative today. Pt notes about 1 week of worsening fatigue, nasal congestion, shortness of breath on exertion, cough with clear to green mucus production, and 3 days of diarrhea. He denies any recent fevers, sweats or chills. He has been taking all his routinely scheduled medications including his diuretic. He denies any loss of appetite or smell, and has been tolerating p.o. intake without any difficulty. He has some bilateral edema in his ankles and feet however this is chronic and unchanged. Patient previously smoked for approximately 40 years, quit 15 years ago. Denies any alcohol use or illicit drug history. His daughter is present with him at bedside and supports the history. CXR reviewed shows beginning phases of pneumonia in bases bilaterally. He was started on IV ceftriaxone and doxycycline, given an albuterol nebulizer treatme nt in the ER as well as 40 mg IV Lasix. Admission Exam Per Admitting Provider General: awake, alert, no apparent distress, + obese with BMI of 39.8 Head: Normocephalic, atraumatic ENT: PERRL, EOMI, no pharyngeal exudate, mucous membranes moist Chest: On 3 L via NC, Diminished breath sounds at bases bilaterally, no adventi tious breath sounds Cardiac: Regular rate and rhythm, no murmur, no JVD, normal peripheral pulses, good capillary refill Abdominal: NABS x 4 quadrants, soft, nondistended, nontender to palpation, no r ebound or guarding Extremities: Normal inspection, 1+ peripheral edema bilaterally, no erythema, calfs nontender to palpation Psych: Normal mood and affect Neuro: AAO x 3, strength intact bilaterally and rated 5/5, no motor deficits, speech is clear, no peripheral sensory deficits Principal Diagnosis Acute hypoxic respiratory failure secondary to pneumonia Discharge Exam CONSTITUTIONAL: WNWD, eldrely M in NAD,on 2-3 L NC EYES: PERRL, normal conjunctivae, no scleral icterus ENT: external ear and nose normal,MMM, NC in place. NECK:supple RESPIRATORY: normal respiratory effort, minimal rhonchi, no wheezing CARDIOVASCULAR: regular rate and rhythm, S1 and 2 heard without murmurs, gallop s or rubs, no JVD, no peripheral edema GASTROINTESTINAL: soft, nontender, ND, no guarding MUSCULOSKELETAL: strength 5/5 throughout, head is normocephalic and atraumatic SKIN: warm and dry NEUROLOGIC: Sleepy this morning, however easily arousable, able to answer only some questions appropriately (d/t dementia). No facial symmetry. Moves extremities. Discharge Data Allergies Allergy/AdvReac Type Severity Reaction Status Date / Time No Known Allergies Allergy Unverified 03/02/21 13:15 Consultations 03/02/21 13:30 ED Decision to Admit Stat Hospital Course (1) Pneumonia: Clinically picture consistent with pneumonia and on imaging this is present at bilateral bases. Patient is improved on ceftriaxone and doxycycline. To shorten the course of antibiotics and make med dosing once daily switching doxycycline to azithromycin for total 3-day dose of 500 mg daily. Otherwise continue ceftriaxone and supportive care along with pulmonary toilet efforts. Patient is not walking around much, typically walks with a cane, however encouraged to mobilize as this will help his breathing. Negative Covid swab, patient has remained afebrile. Per previous hospitalist- discussed the utility of RSV and flu swabs at this point and daughter agrees to decline this testing. Patient remains on 2 to 3 L of O2 however his dementia also plays a role, and patient is becoming more confused and agitated while in the hospital Discussed with the daughter, who would like to take him home to help with confusion Obtained 2 step study, so patient could be discharged with oxygen -he will need 3 L of O2 via NC continuously Plan to discharge on p.o. antibiotics, Mucinex, pulmonary toilet (2) COPD (chronic obstructive pulmonary disease): chronic, stable no wheezing. Cont home inhalers. Of note, daughter requested a different inhaler at discharge which was switched. She is a lead pharmacist for [employer] and understands what medications will be covered by his insurance. The change was made so that he would receive a better vehicle instead of the diskus which is not user friendly. (3) DM II (diabetes mellitus, type II), controlled: diet controlled. (4) HLD (hyperlipidemia): -Continue atorvastatin 40 mg daily per home regimen. (5) Lewy body dementia: newly diagnosed 6 months ago. Frequent falls at home in the last 6 months. PT/OT assessments. (6) CKD (chronic kidney disease), stage III: -Chronic, baseline appears to be around 1.4-1.5, 1.67 on admission -Continue medications [employer] (7) Obesity (BMI 30-39.9): - BMI 39.8, counselling and outpt follow up recommended (8) BPH (benign prostatic hyperplasia): - Cont finasteride and tamsulosin Dispo: home w/ family, poss. HH Total Time Total Time Spent Total Time Spent (In Minutes): 40 Discharge Plan Discharge Items Patient Disposition: Home - Home Health Services Reason For Visit: ACUTE HYPOXIC RESPIRATORY FAILURE Discharge Diagnosis: Acute hypoxic respiratory failure secondary to pneumonia Activity: Per Instructions section Non-emergency contact: Primary Care Provider Call non-emergency contact if: you have any medication questions and your symptoms worsen Follow-up/Referrals: Carina Merrill DO [Primary Care Provider] - Diet: Heart Healthy Addtl Attending Provider Instructions: Follow-up with your primary care doctor within 1 to 2 weeks. Finish antibiotic treatment, with Augmentin, as prescribed. It is recommended that you take probiotic, while you take antibiotic to prevent any stomach upsets. It is also recommended that you use Mucinex, flutter valve and incentive spirometer. Use supplemental oxygen as prescribed (3 L continuously). For anxiety/agitation, you can use clonazepam, discuss this further with your primary care doctor. Pending Studies at Discharge: No Stand-Alone Forms: [facility], Smoking Cessation Medications and DC Order Prescriptions: New Stiolto Respimat 2.5-2.5 mcg/actuation mist 2 inh inhalation DAILY Qty: 4 RF: 1 guaifenesin [Mucinex] 600 mg Tablet Extended Release 12hr 1,200 mg PO Q12 5 Days Qty: 20 RF: 0 amoxicillin-pot clavulanate [Augmentin] 875-125 mg tablet 1 tab PO BID 3 Days Qty: 6 RF: 0 clonazepam 0.5 mg tablet 0.5 mg PO BID PRN (Reason: anxiety/agitation) Qty: 10 RF: 0 Continued atorvastatin 40 mg tablet 40 mg PO HS RF: 0 carvedilol 25 mg tablet 25 mg PO BID RF: 0 enalapril maleate 20 mg tablet 20 mg PO QAM RF: 0 allopurinol 100 mg tablet 100 mg PO QAM RF: 0 levothyroxine 100 mcg tablet 100 mcg PO DAILYBB RF: 0 tamsulosin 0.4 mg capsule 0.4 mg PO QAM RF: 0 omeprazole 20 mg capsule,delayed release(DR/EC) 20 mg PO QAM RF: 0 albuterol sulfate 90 mcg/actuation HFA aerosol inhaler 90 mcg INHALATION DIRECTED RF: 0 finasteride 5 mg tablet 5 mg PO QAM RF: 0 (DME) OneTouch Ultra Blue Test Strip Strip MISCELLANEOUS RF: 0 aspirin [Aspirin Low Dose] 81 mg Tablet,Delayed Release (Dr/Ec) 81 mg PO QAM RF: 0 donepezil 10 mg tablet 10 mg PO QAM RF: 0 sertraline 100 mg tablet 100 mg PO HS RF: 0 amlodipine 10 mg tablet 10 mg PO QAM RF: 0 furosemide 20 mg tablet 20 mg PO QAM RF: 0 Discontinued Serevent Diskus 50 mcg/dose blister with device 50 mcg INHALATION BID RF: 0 Discharge Orders: Discharge Order (Routine); Ordered 03/06/21 Ordered By: Kei Thompson Admission Data Admit Date/Time: 03/02/21 13:41 Attending Provider: Kei Thompson Admit Provider: Wes Steele Primary Care Provider: Carina Merrill Other Providers: Wes Steele ; Irasema Weinberg ; [facility] ; [facility]
[2021-03-06] MEDS: cefTRIAXone SODIUM 2,000 MG in DEXTROSE 5% 50 ML IV SCH (10:44)
[2021-03-06] MEDS: MICONAZOLE NITRATE POWDER 43 GM EXT SCH (11:15)
== END 2021-03-06 13:35 | disposition home health service (06) | DRG 193 ==
LOC: ED 11:23 → SUATTDRO 13:41 → EDINP 13:41 → 2N 17:01